=== PATIENT | male | born 1955 | race Two or more races ===

== ENCOUNTER 2020-12-14 03:41 | Emergency (ER) | payer OTHER ==
[~2020-12-14] VITALS: Ht 165.1 cm; Wt 59.0 kg
[2020-12-14 04:04] VITALS: BP 128/87
[2020-12-14 07:46] LABS: Eosinophils # (auto) 0.2 10 ^3/uL (0-0.8); Hemoglobin 13.9 g/dL (13.5-17.5); Lymphocytes # (auto) 2.5 10 ^3/uL (0.4-5.4); Monocytes # (auto) 0.6 10 ^3/uL (0-1.3); Neutrophils # (auto) 4.6 10 ^3/uL (1.6-8.6); Red Cell Distribution Width 13.4 % (11.8-14.3)
[2020-12-14 08:02] LABS: Calcium 9.2 mg/dL (8.5-10.1); Potassium 3.7 mmol/L (3.5-5.1)
[2020-12-14 08:05] LABS: Bilirubin, Total 0.9 mg/dL (0.2-1.0); Total Protein 7.7 g/dL (6.4-8.2)
[2020-12-14 08:26] LABS: Basophils # (auto) 0.1 10 ^3/uL (0-0.2); Basophils % (auto) 0.7 % (0.0-2.0); Eosinophils % (auto) 2.3 % (0.0-7.0); Hematocrit 39.2 % (41.0-53.0); Lymphocytes % (auto) 31.1 % (10.0-50.0); Mean Corpuscular Hemoglobin 30.9 pg (28.0-32.0); Mean Corpuscular Hgb Conc. 35.5 g/dL (32.0-36.0); Mean Corpuscular Volume 87.3 fL (80.0-100.0); Neutrophils % (auto) 57.9 % (37.0-80.0); Nucleated Red Blood Cells % 0.1 %; Red Blood Cells 4.49 10^6/uL (4.5-5.90); White Blood Cell 7.9 10^3/uL (4.4-10.8)
== END 2020-12-14 09:08 | disposition home or self-care (01) ==
LOC: EDBD 03:41 → ER 03:45
DX: K59.00 Constipation, unspecified (principal); E11.9 Type 2 diabetes mellitus without complications; E78.00 Pure hypercholesterolemia, unspecified; E03.9 Hypothyroidism, unspecified; Z88.6 Allergy status to analgesic agent; Z88.5 Allergy status to narcotic agent
CPT/HCPCS: 36415; 74176; 80053; 85025; 93005